=== PATIENT | female | born 1975 | race Caucasian/White ===

== ENCOUNTER 2019-03-29 11:19 | Emergency (ER) | payer OTHER ==
[~2019-03-29] VITALS: Ht 154.9 cm; Wt 63.5 kg
[2019-03-29 11:41] LABS: ABSOLUTE EOSINOPHILS 0.2 thou/uL (0.0-0.7); ABSOLUTE LYMPHOCYTES 2.1 thou/uL (0.8-5.3); ABSOLUTE MONOCYTES 0.6 thou/uL (0.0-1.2); ABSOLUTE NEUTROPHILS 4.3 thou/uL (1.6-8.1); BASOPHILS 0.7 %; EOSINOPHILS 2.4 %; HEMATOCRIT 39.1 % (37.0-47.0); HEMOGLOBIN 13.3 gm/dL (12.0-15.0); LYMPHOCYTES 29.5 %; MCH 30.6 pg (26.0-34.0); MCHC 34.1 g/dL (28.0-37.0); MCV 89.7 fL (80.0-100.0); MONOCYTES 7.9 %; MPV 8.9 fl. (7.2-11.1); NUCLEATED RBCS 0 /100WBC; PLATELET COUNT* 256 thou/uL (150-400); POLYS 59.5 %; RBC 4.36 mil/uL (4.20-5.00); RDW-CV 13.1 % (10.5-14.5); WBC 7.2 thou/uL (4.0-11.0)
[2019-03-29 11:46] LABS: ANION GAP 8 mmol/L (7-16); BUN 11 mg/dL (7-18); CALCIUM 8.5 mg/dL (8.5-10.1); CHLORIDE 102 mmol/L (98-107); CO2 28 mmol/L (21-32); CREATININE 0.7 mg/dL (0.6-1.3); GLUCOSE 112 mg/dL (70-99); POTASSIUM 3.7 mmol/L (3.5-5.1); SODIUM 138 mmol/L (136-145)
[2019-03-29 11:57] LABS: ALBUMIN 3.9 g/dL (3.4-5.0); ALKALINE PHOSPHATASE 85 U/L (46-116); LIPASE 106 U/L (73-393); NT-PRO BRAIN NAT PEPTIDE 81 pg/mL (<300); SGOT 21 U/L (15-37); SGPT 40 U/L (30-65); TOTAL BILIRUBIN 0.2 mg/dL (<0.1-1.0); TOTAL PROTEIN 7.3 g/dL (6.4-8.2); TROPONIN-I LEVEL <0.06 ng/mL (<0.06)
[2019-03-29] MEDS ORDERED: TRAMADOL 50 MG50 MG PO (12:17)
[2019-03-29] MEDS ORDERED: CARISOPRODOL250 MG PO (12:17)
[2019-03-29] MEDS ORDERED: IBUPROFEN 800800 MG PO (12:17)
[2019-03-29 12:29] VITALS: BP 132/81
--- NOTE | 2019-03-29 16:39 | EKG ---
[place] [address] ELECTROCARDIOGRAM REPORT Name: KENDRA HUANGUCENA Room: [facility] ([place], [place])#: [id number] Admission: 03/29/19 Attend Phys: Discharge: 03/29/19 Date of : 71 Report #: [id number] THIS REPORT FOR: //name// [facility] ED Test Date: 2019-03-29 Test Time: 11:25:09 Pat Name: ISABELLE HUANG Department: Room: Gender: F [employer]: : 1975 Requested By: Chinmay Lopez Order Number: [id number] MD: Ervin Cherry Measurements Intervals [place] Rate: 77 P: 49 ND: 175 QRS: -61 QRSD: 102 T: 13 QT: 376 QTc: 426 Interpretive Statements Sinus rhythm Ventricular premature complex Left anterior fascicular block Abnormal R-wave progression, late transition Borderline T wave abnormalities No previous ECG available for comparison Electronically Signed On 03-29-2019 16:39:08 CDT by Ervin Cherry [email or web address] <ELECTRONICALLY SIGNED> By: Ervin Cherry MD, LOCATED [facility]IN [facility] 03/29/19 1639 1125 1125 Ervin Cherry MD, [facility] /EPI
== END 2019-03-29 12:30 | disposition home or self-care (01) ==
LOC: M.ERS 11:19
PROVIDERS: Emergency Medicine
DX: R07.89 Other chest pain (principal)